=== PATIENT | male | born 1995 | race Caucasian/White ===

== ENCOUNTER 2017-01-31 21:08 | Emergency (ER) | payer SELFPAY ==
--- NOTE | ~2017-01-31 | ER ---
PATIENT'S NAME: BETO VELAZQUEZ [facility] AGE: 21 Y [address] ROOM: [place] [id number] LOCATION: [facility] ADMIT DATE: 01/31/2017 ER/Outpatient Report DISCHARGE DATE: 01/31/2017 FAMILY PHYSICIAN: Seble Morales MD ATTENDING PHYSICIAN: Leticia Arroyo HISTORY OF PRESENT ILLNESS: This is a 21-year-old male who presents today with chief complaint of syncope associated with some palpitations and chest pain. He does not have any chest pain anymore but says it was mild at that time, 2/10 and palpitations. This happened at work about 3 hours ago. The patient says he was standing washing his hands at work. He said it was really hot and he thinks that is what did it, and he says he had not been drinking water all day, so he felt pretty dehydrated. He only felt some mild chest pain and these palpitations and felt lightheaded. Did not have any shortness of breath or any other complaints. He says he has fainted in the past before and the last time was when he saw blood and other time before that was when he was stressed about something and other time before that was that he was dehydrated. His friends at bedside said that it has been happening more often though and they are kind of worried. He denies any headache, no neck pain, no other complaints at this time. He has no chest pain or palpitations at this time. He is just here because of the syncopal episode. PAST MEDICAL HISTORY: Includes these palpitations. SURGICAL HISTORY: None. SOCIAL HISTORY: He smokes half a pack per day, he does do vape as well. He drinks alcohol rarely. No drug use. MEDICATIONS: None. ALLERGIES: NONE. REVIEW OF SYSTEMS: Reviewed by me and negative with the exception of those discussed in HPI. PHYSICAL EXAMINATION: VITAL SIGNS: He is 5 feet 8 inches, he weighs 85.9 kilograms, blood pressure 136/88, heart rate 74, respiratory rate 16, temperature is 98.9, and PATIENT'S NAME: BETO VELAZQUEZ [facility] AGE: 21 Y [address] ROOM: [place] [id number] LOCATION: [facility] ADMIT DATE: 01/31/2017 ER/Outpatient Report DISCHARGE DATE: 01/31/2017 FAMILY PHYSICIAN: Seble Morales MD ATTENDING PHYSICIAN: Leticia Arroyo saturations are 97% on room air. GENERAL: The patient is alert and oriented x4. His gait is within normal limits. HEENT: Pupils are equal and reactive to light. GCS is 15. He tracks appropriately. No visual acuity defects, no visual field defects. HEART: Regular rate and rhythm at this time. His heart rate is about 75 beats per minute. LUNGS: Lung sounds are clear. He has no wheezing, rales, or rhonchi. No decreased breath sounds. No increased work of breathing. ABDOMEN: Soft, nontender, nondistended. No guarding. EXTREMITIES: He moves all extremities without any difficulty. Strength, bilateral upper extremities 5/5. Lower extremities, 5/5. Intact grasp strength. Cranial nerves 2 through 12 are intact, able to do finger-nose- finger testing. EMERGENCY ROOM COURSE: An EKG was done, is in sinus rhythm. He does have some T-wave inversion just in lead III though but nowhere else. No other ST elevations, no ST depressions. QTc is not prolonged. No evidence of Brugada syndrome on the EKG. Discussed this with the patient. PLAN: We will have him follow up with his primary care doctor. He understands reasons to come back to the ER sooner. IMPRESSION: Syncopal episode. LETICIA ARROYO MD CAW/modl /[id number] d: 02/01/17425 t: 02/03/171952, OUTPATIENT REPORT
== END 2017-01-31 22:51 | disposition disaster alternative care site (69) ==
LOC: GMED 21:08
DX: R55 Syncope and collapse (principal); R00.2 Palpitations; F17.210 Nicotine dependence, cigarettes, uncomplicated